=== PATIENT | female | born 1950 | race Caucasian/White ===

== ENCOUNTER 2016-06-01 12:31 | Inpatient (IN) | payer MEDICARE, OTHER ==
[~2016-06-01] VITALS: Ht 152.4 cm; Wt 49.4 kg
--- NOTE | 2016-06-01 12:40 | NUR ---
pt to ed room 02. MID STERNAL CHEST PAIN, NON RADIATING WHILE STANDING IN LINE AT PHARMACY. a/a/o. side raisl up. hob elevated. connected to monitor. seen and evaluated by ed provider.
[2016-06-01] MEDS ORDERED: ACETAMINOPHEN ES 500 MG TABLET ONE (12:52)
[2016-06-01 12:57] LABS: BASOPHILS # (AUTO) 0.2 /CMM (0.0-0.2); BASOPHILS % (AUTO) 1.7 % (0.0-2.0); EOSINOPHILS # (AUTO) 0.2 /CMM (0.0-0.7); EOSINOPHILS % (AUTO) 2.2 % (0.0-6.0); HEMATOCRIT 44 % (33-45); HEMOGLOBIN 14.6 g/dL (11.5-14.8); LYMPHOCYTES # (AUTO) 1.7 /CMM (0.8-4.8); MEAN CORPUSCULAR HEMOGLOBIN 28 PG (26.0-33.0); MEAN CORPUSCULAR HGB CONC 33 g/dl (31.0-36.0); MEAN CORPUSCULAR VOLUME 83 fL (82-100); MONOCYTES # (AUTO) 0.5 /CMM (0.1-1.30); MONOCYTES % (AUTO) 4.9 % (2.0-12.0); NEUTROPHILS # (AUTO) 7.1 /CMM (1.8-8.9); NEUTROPHILS % (AUTO) 73.2 % (43.0-81.0); PLATELET COUNT (AUTO) 225 /CMM (150-450); RDW COEFFICIENT OF VARIATION 12.6 (11.5-15.0); RED BLOOD CELL COUNT(AUTO) 5.33 MIL/uL (4.0-5.2); WHITE BLOOD COUNT (AUTO) 9.7 K/uL (4.3-11.0)
[2016-06-01] MEDS ORDERED: ACETAMINOPHEN ES 500 MG TABLET PO ONE (13:00)
[2016-06-01 13:06] LABS: CALCIUM, SERUM 9.4 mg/dL (8.5-10.1); CARBON DIOXIDE 25 mmol/L (21-32); CHLORIDE 107 mmol/L (98-107); CREATININE 0.7 mg/dL (0.6-1.3); GFR 83 mL/min (>60); GLUCOSE 189 mg/dL (74-106); POTASSIUM 3.7 mmol/L (3.5-5.1); SODIUM SERUM 143 mmol/L (136-145); UREA NITROGEN, BLOOD 11 mg/dL (7-18)
[2016-06-01 13:10] LABS: INR 0.95 (0.87-1.13); PROTHROMBIN TIME 9.9 SECS (9.5-12.7)
[2016-06-01 13:15] LABS: TROPONIN I < 0.017 ng/mL (0.00-0.056)
[2016-06-01] MEDS ORDERED: SITA25TA PO (13:18)
[2016-06-01] MEDS ORDERED: LINA5TAB PO (13:18)
[2016-06-01] MEDS ORDERED: IBUP-1481 PO (13:18)
--- NOTE | 2016-06-01 13:30 | NUR ---
PAGED SUPERVISOR EVAPORATOR PANEL.
--- NOTE | 2016-06-01 13:42 | NUR ---
report given to chris hudson 327/2.
--- NOTE | 2016-06-01 13:48 | NUR ---
PAGED WIRELESS INTERNET INSTALLER MILDRED ROWE
--- NOTE | 2016-06-01 15:00 | NUR ---
ADMITTED FROM ER. PT. AWAKE, ALERT AND ORIENTED X4. DENIED PAIN AND SOB. SR ON THE TELE MONITOR. SKIN IS INTACT. LT HAND SL #20G. FAMILY AT THE BEDSIDE. GIVEN UNIT ORIENTATION TO THE PT AND FAMILY. SIDE RAILS UP. CALL LIGHT WITHIN REACH. MONITOR CLOSELY. PAGED DR. MARAVILLA.
[2016-06-01] MEDS ORDERED: ACETAMINOPHEN 325 MG TABLET PO PRN (15:30)
[2016-06-01] MEDS ORDERED: ZOLPIDEM TARTRATE 5 MG TABLET PO PRN (15:30)
[2016-06-01] MEDS ORDERED: HYDROCODONE/APAP 5/325MG 1 EACH TABLET PO PRN (15:30)
[2016-06-01] MEDS ORDERED: Z GUARD REMEDY 2 OZ OINT TP PRN (15:30)
[2016-06-01] MEDS ORDERED: MAG HYDROX/AL HYDROX/SIMETH 30 ML UDC PO PRN (15:30)
[2016-06-01] MEDS ORDERED: ONDANSETRON HCL/PF 4 MG/2 ML VIAL IVP PRN (15:30)
[2016-06-01 16:00] VITALS: BP 135/73
[2016-06-01] MEDS ORDERED: NITROGLYCERIN 0.4 MG/TAB BOTTLE SL PRN (16:00)
--- NOTE | 2016-06-01 17:15 | NUR ---
ORTHOSTATIC BP LYING 152/72 HR 74 SITTING 158/84 HR 73 STANDING 143/78 HR76
--- NOTE | 2016-06-01 18:52 | NUR ---
CLOSING SHIFT PT. AWAKE, ALERT AND ORIENTED X4. DENIED CHEST PAIN. SR ON THE MONITOR. APPLIED DVT MACHINE. CALL LIGHT WITHIN REACH. SIDE RAILS UP. MONITO CLOSELY.
[2016-06-01 19:30] LABS: TROPONIN I < 0.017 ng/mL (0.00-0.056)
[2016-06-01 20:59] VITALS: BP 154/76
--- NOTE | 2016-06-01 21:20 | NUR ---
RN NOTES RECEIVED PT AWAKE, NO SOB AND TOLERATING ROOM AIR, NO SIGNS OF DISTRESS AND DISCOMFORT NOTED. PT ALERT AND ORIENTED X4, DENIES ANY PAIN AND DISCOMFORT. TELEMONITOR READS SINUS RHYTHM WITH HEART RATE AT 81. LUNGS CLEAR ON AUSCULTATION. IV ACCESS ON LEFT HAND PATENT AND INTACT. WITH DVT PUMP ON. PT AMBULATES WITH STEADY GAIT. KEPT BED IN THE LOWEST POSITION, LOCKED, SIDE RAILS UP X2, WITH CALL LIGHT WITH IN REACH. WILL CONTINUE TO MONITOR PT.
[2016-06-01 22:00] VITALS: BP 154/76
[2016-06-02] VITALS (8 sets, daily range): BP systolic 122–146; BP diastolic 66–82
--- NOTE | 2016-06-02 06:53 | NUR ---
RN NOTES PT ASLEEP, HOB ELEVATED, NO SOB, NO SIGNS OF DISTRESS AND DISCOMFORT , ON ROOM AIR AND TOLERATED WELL.VITAL SIGNS STABLE, AFEBRILE. NO EPISODE OF NAUSEA AND VOMITING. NO COMPLAIN OF PAIN WITH IN THE SHIFT. AMBULATES WITH STEADY GAIT. ALL NEEDS ATTENDED. WILL ENDORSE TO MORNING RN FOR CONTINUITY OF CARE.
[2016-06-02 06:58] LABS: BASOPHILS % (AUTO) 0.6 % (0.0-2.0); EOSINOPHILS # (AUTO) 0.2 /CMM (0.0-0.7); EOSINOPHILS % (AUTO) 3.2 % (0.0-6.0); HEMATOCRIT 44 % (33-45); HEMOGLOBIN 14.4 g/dL (11.5-14.8); LYMPHOCYTES # (AUTO) 1.9 /CMM (0.8-4.8); LYMPHOCYTES % (AUTO) 31.3 % (20.0-44.0); MEAN CORPUSCULAR HEMOGLOBIN 27 PG (26.0-33.0); MEAN CORPUSCULAR HGB CONC 33 g/dl (31.0-36.0); MEAN CORPUSCULAR VOLUME 83 fL (82-100); MONOCYTES # (AUTO) 0.5 /CMM (0.1-1.30); MONOCYTES % (AUTO) 8.1 % (2.0-12.0); NEUTROPHILS # (AUTO) 3.4 /CMM (1.8-8.9); NEUTROPHILS % (AUTO) 56.8 % (43.0-81.0); PLATELET COUNT (AUTO) 229 /CMM (150-450); RDW COEFFICIENT OF VARIATION 13.4 (11.5-15.0); RED BLOOD CELL COUNT(AUTO) 5.31 MIL/uL (4.0-5.2); WHITE BLOOD COUNT (AUTO) 6.1 K/uL (4.3-11.0)
--- NOTE | 2016-06-02 07:30 | NUR ---
AM RN NOTE Received patient awake, A/O X3 verbally responsive able to make needs known. On tele monitor. Denies any pain or discomfort at this time. Will continue to monitor.
[2016-06-02 07:46] LABS: CALCIUM, SERUM 9.2 mg/dL (8.5-10.1); CREATININE 0.9 mg/dL (0.6-1.3); MAGNESIUM 2.2 mg/dL (1.8-2.4); PHOSPHORUS 4.3 mg/dL (2.5-4.9); POTASSIUM 4.8 mmol/L (3.5-5.1)
[2016-06-02] MEDS: PANTOPRAZOLE 40 MG TABLET.DR PO SCH (08:24)
[2016-06-02] MEDS: ASPIRIN EC 81 MG TABLET.DR PO SCH (12:37)
[2016-06-02] MEDS: LISINOPRIL (5MG) 5 MG TABLET PO SCH (12:37)
--- NOTE | 2016-06-02 13:00 | NUR ---
WAI HECK NOTE LYING BP134/69 P65 SITTING BP124/78 P71 STANDING BP129/79 P78 Addendum: 06/02/16 at 1503 by ANJALI SANDRA RN Amended: Links added.
--- NOTE | 2016-06-02 18:22 | NUR ---
AM RN NOTE Patient awake, A/OX 4 denies any pain at this time. Family at bedside. Will endorse to next shift for BARBARA.
--- NOTE | 2016-06-02 19:20 | NUR ---
RN NOTES RECEIVED PT AWAKE, NO SOB, NO SIGNS OF DISTRESS AND DISCOMFORT NOTED AND TOLERATING ROOM AIR. PT ALERT AND ORIENTED X4, DENIES ANY PAIN AND DISCOMFORT. IV ACCESS ON LEFT HAND PATENT AND INTACT. PT AMBULATES WITH STEADY GAIT. KEPT BED IN THE LOWEST POSITION, LOCKED, SIDE RAILS UP X2, WITH CALL LIGHT WITH IN REACH. WILL CONTINUE TO MONITOR PT.
[2016-06-02] MEDS ORDERED: SIMVASTATIN 10 MG TABLET PO SCH (22:00)
--- NOTE | 2016-06-03 07:19 | NUR ---
RN NOTES PT ASLEEP, HOB ELEVATED, NO SOB, NO SIGNS OF DISTRESS AND DISCOMFORT , ON ROOM AIR AND TOLERATED WELL. VITAL SIGNS STABLE, AFEBRILE. NO EPISODE OF NAUSEA AND VOMITING. NO COMPLAIN OF PAIN WITH IN THE SHIFT. AMBULATES WITH STEADY GAIT AND ASSISTED TO THE BATHROOM. ALL NEEDS ATTENDED. ENDORSED TO MORNING RN FOR CONTINUITY OF CARE.
--- NOTE | 2016-06-03 07:40 | NUR ---
RN OPEN NOTES RECEIVED REPORT FROM FUR VAULT ATTENDANT NURSE. PATIENT IS IN BED, AWAKE AND ORIENTED TO NAME, PLACE AND TIME. DENIED PAIN. NO SIGNS AND SYMPTOMS OF DISTRESS. BED IN LOW POSITION, LOCKED AND 2 SIDE RAILS ARE UP. WILL CONTINUE TO MONITOR AND ASSESS PATIENT.
[2016-06-03 08:00] VITALS: BP 128/70
[2016-06-03] MEDS ORDERED: ASPIRIN 81 MG TAB.CHEW PO SCH (09:00)
[2016-06-03] MEDS: PANTOPRAZOLE 40 MG TABLET.DR PO SCH (09:18)
[2016-06-03] MEDS: ASPIRIN EC 81 MG TABLET.DR PO SCH (09:18)
[2016-06-03] MEDS: LISINOPRIL (5MG) 5 MG TABLET PO SCH (09:18)
[2016-06-03] MEDS ORDERED: LISI5TAB45 PO (11:08)
[2016-06-03] MEDS ORDERED: SIMV10TA6 PO (11:08)
[2016-06-03] MEDS ORDERED: ASPI-605 PO (11:08)
[2016-06-03] MEDS ORDERED: METF500T4 PO (11:08)
[2016-06-03 12:00] VITALS: BP 124/79
[2016-06-03] MEDS ORDERED: IBUPROFEN 400 MG TABLET PO SCH (13:00)
--- NOTE | 2016-06-03 13:54 | NUR ---
ALARM OPERATOR NOTES PATIENT DISCHARGE INSTRUCTION RECEIVED AND EXPLAINED TO PATIENT AND PATIENT'S , BOTH VERBALIZED UNDERSTANDING. PATIENT IS STABLE AT TIME OF DISCHARGE. NO SIGNS OR SYMPTOMS OF DISTRESS. STABLE VITAL SIGNS. PATIENT IV SITE REMOVED. ID BAND REMOVED. ALL PERSONAL BELONGING WITH PATIENT AT TIME OF DISCHARGE. 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 PATIENT TRANSPORTED HOME IN A PRIVATE CAR ACCOMPANIED BY HER DAUGHTER.
[2016-06-04] MEDS ORDERED: LINAGLIPTIN 5 MG TABLET PO SCH (09:00)
== END 2016-06-03 14:00 | disposition home or self-care (01) | DRG 206 ==
LOC: ER 12:32 → EDBD 12:32 → TELE 13:34 → MED 06-02 12:34
PROVIDERS: ADMIT Nurse Practitioner Acute Care; ATTEND Nurse Practitioner Acute Care
DX: M94.0 Chondrocostal junction syndrome [Tietze] (principal); D68.59 Other primary thrombophilia; I10 Essential (primary) hypertension; M06.9 Rheumatoid arthritis, unspecified; E11.65 Type 2 diabetes mellitus with hyperglycemia; E78.1 Pure hyperglyceridemia
CPT/HCPCS: 36415; 70450-TC; 71010-TC; 72125-TC; 73564-TC; 80048-TC; 80061-TC; 82962-TC; 83735-TC; 83880; 84100-TC; 84443-TC; 84484-TC; 85025-TC; 85730-TC; 87081-TC; 93307-TC; 93880-TC; A4606; Z7610

== ENCOUNTER 2016-06-05 09:05 | Outpatient (CLI) | payer MEDICARE, OTHER ==
[~2016-06-05 09:05] MED LIST: ASPI-605 PO; IBUP-1481 PO; LINA5TAB PO; LISI5TAB45 PO; METF500T4 PO; SIMV10TA6 PO
[2016-06-05] MEDS ORDERED: REGADENOSON 0.4 MG/5 ML DISP.SYRIN IVP ONE (11:00)
== END 2016-06-05 23:59 ==
LOC: NM 09:05
PROVIDERS: ATTEND Internal Medicine Cardiovascular Disease
DX: R07.9 Chest pain, unspecified (principal)
CPT/HCPCS: 78452; A9502; J2785

== ENCOUNTER 2018-11-25 12:40 | Emergency (ER) | payer MEDICARE, OTHER ==
[~2018-11-25] VITALS: Ht 162.6 cm; Wt 55.3 kg
[~2018-11-25 12:40] MED LIST changes: -IBUP-1481 PO; +IBUP-1953 PO; +LISI-608 PO; -LISI5TAB45 PO; +METF-440 PO; -METF500T4 PO
--- NOTE | 2018-11-25 13:02 | NUR ---
PT BIB SON C/O BIB Family "abdominal pain/weak/body aches/nausea/diarrhea x3d" PT IS AAOX3, NOT IN RESPIRATORY DISTRESS, HOOKED TO MONITOR, KEPT RESTED AND COMFORTABLE, WILL CONTINUE TO MONITOR.
--- NOTE | 2018-11-25 13:18 | NUR ---
AT BEDSIDE FOR EVAL.
--- NOTE | 2018-11-25 13:26 | NUR ---
URINE SPECIMEN COLLECTED AND SENT TO LAB.
[2018-11-25] MEDS ORDERED: ACETAMINOPHEN ES 500 MG TABLET PO ONE (13:30)
[2018-11-25] MEDS ORDERED: IBUPROFEN 600 MG TABLET PO ONE ×2 (13:30→13:37)
--- NOTE | 2018-11-25 13:30 | NUR ---
IV LINE ESTABLISHED, BLOOD DRAWN AND SENT TO LAB.
[2018-11-25] MEDS ORDERED: ACETAMINOPHEN ES 500 MG TABLET ONE (13:36)
[2018-11-25 13:39] LABS: BASOPHILS # (AUTO) 0.1 /CMM (0.0-0.2); BASOPHILS % (AUTO) 1.1 % (0.0-2.0); EOSINOPHILS % (AUTO) 1.9 % (0.0-6.0); HEMATOCRIT 45 % (33-45); HEMOGLOBIN 15.3 g/dL (11.5-14.8); LYMPHOCYTES # (AUTO) 1.6 /CMM (0.8-4.8); LYMPHOCYTES % (AUTO) 25.4 % (20.0-44.0); MEAN CORPUSCULAR HGB CONC 34 g/dl (31.0-36.0); MEAN CORPUSCULAR VOLUME 82 fL (82-100); MONOCYTES # (AUTO) 0.5 /CMM (0.1-1.30); MONOCYTES % (AUTO) 8.8 % (2.0-12.0); NEUTROPHILS # (AUTO) 3.9 /CMM (1.8-8.9); NEUTROPHILS % (AUTO) 62.8 % (43.0-81.0); PLATELET COUNT (AUTO) 219 /CMM (150-450); RED BLOOD CELL COUNT(AUTO) 5.41 MIL/uL (4.0-5.2); WHITE BLOOD COUNT (AUTO) 6.3 K/uL (4.3-11.0)
[2018-11-25 13:40] LABS: APPEARANCE,URINE Clear (CLEAR); BILIRUBIN,URINE Negative (NEGATIVE); BLOOD, URINE Negative Ery/uL (NEGATIVE); COLOR,URINE Yellow (YELLOW); KETONES,URINE Negative (NEGATIVE); LEUKOCYTE ESTERASE ,URINE Negative (NEGATIVE); NITRITE, URINE Negative (NEGATIVE); PROTEIN,URINE Negative (NEGATIVE); UGLUCOSE 500 MG/DL mg/dL (NEGATIVE); UROBILINOGEN,URINE 0.2 EU/dL (0.2)
[2018-11-25 13:47] LABS: CALCIUM, SERUM 9.5 mg/dL (8.5-10.1); CARBON DIOXIDE 27 mmol/L (21-32); CHLORIDE 103 mmol/L (98-107); CREATININE 0.7 mg/dL (0.6-1.3); GLUCOSE 242 mg/dL (74-106); POTASSIUM 4.1 mmol/L (3.5-5.1); SODIUM SERUM 138 mmol/L (136-145); UREA NITROGEN, BLOOD 9 mg/dL (7-18)
[2018-11-25 13:53] LABS: ALANINE AMINOTRANSFERASE 22 U/L (12-78); ALKALINE PHOSPHATASE 101 U/L (46-116); ASPARTATE AMINOTRANSFERASE 22 U/L (15-37); BILIRUBIN,DIRECT 0.2 mg/dL (0.0-0.2); BILIRUBIN,TOTAL 0.7 mg/dL (0.2-1.0); LIPASE 165 U/L (73-393); TOTAL PROTEIN, SERUM 7.4 g/dL (6.4-8.2)
--- NOTE | 2018-11-25 14:01 | NUR ---
PHOTOGRAPHIC PROCESSOR AT BEDSIDE FOR XRAY.
[2018-11-25] MEDS ORDERED: CT SWABBABLE VALVE TRANS SET 1 EA INFUS.SET MC ONE (14:24)
[2018-11-25] MEDS ORDERED: IOHEXOL-300 100 ML VIAL IV ONE (14:24)
[2018-11-25] MEDS ORDERED: IV NS 0.9% 250 ML IV ONE (14:24)
--- NOTE | 2018-11-25 14:38 | NUR ---
PT IS BACK FROM TH CT SCAN.
[2018-11-25 15:28] VITALS: BP 121/81
--- NOTE | 2018-11-25 15:28 | NUR ---
IV removed. Catheter intact and site benign. Pressure and 4x4 applied to site. No bleeding noted. Patient discharged to home in stable condition. Written and verbal after care instructions given. Patient verbalizes understanding of instruction.
== END 2018-11-25 15:30 | disposition home or self-care (01) ==
LOC: ER 12:49
DX: R10.9 Unspecified abdominal pain (principal); I10 Essential (primary) hypertension; E11.9 Type 2 diabetes mellitus without complications; Z79.82 Long term (current) use of aspirin; Z79.899 Other long term (current) drug therapy; Z90.49 Acquired absence of other specified parts of digestive tract
CPT/HCPCS: 36415; 71045; 74177; 80048; 80076; 81001; 83690; 84484; 85025; 85378; 87086; 93005 ×2; 99284; J7050; Q9967; 81000-TC

== ENCOUNTER 2019-02-17 13:26 | Emergency (ER) | payer MEDICARE, OTHER ==
[~2019-02-17] VITALS: Ht 154.9 cm; Wt 59.0 kg
[~2019-02-17 13:26] MED LIST changes: -SIMV10TA6 PO; +SIMV10TA98 PO
--- NOTE | 2019-02-17 13:40 | NUR ---
PAIN IN LEFT FOOT AND BACK OF HEAD, SLIPPED/FELL IN THE BATHROOM 2 DAYS AGO. PATIENT A/OX4, BREATHING EVEN AND UNLABORED, NO SOB NOTED, NEEDS ATTENDED, KEPT COMFORTABLE.
--- NOTE | 2019-02-17 15:40 | NUR ---
dr. gutiérrez spoke with family.
--- NOTE | 2019-02-17 16:12 | NUR ---
waiting for post-op shoe.
[2019-02-17 16:23] VITALS: BP 147/75
--- NOTE | 2019-02-17 16:23 | NUR ---
Patient discharged to home in stable condition. Written and verbal after care instructions given. Patient verbalizes understanding of instruction.
== END 2019-02-17 16:24 | disposition home or self-care (01) ==
LOC: ER 13:26
DX: S92.592A Other fracture of left lesser toe(s), initial encounter for closed fracture (principal); S00.03XA Contusion of scalp, initial encounter; I10 Essential (primary) hypertension; E11.9 Type 2 diabetes mellitus without complications; Z79.82 Long term (current) use of aspirin; Z79.899 Other long term (current) drug therapy; W01.0XXA Fall on same level from slipping, tripping and stumbling without subsequent striking against object, initial encounter; Y93.89 Activity, other specified; Y92.002 Bathroom of unspecified non-institutional (private) residence as the place of occurrence of the external cause; Y99.8 Other external cause status
CPT/HCPCS: 70450-TC; 73630-TC

== ENCOUNTER 2023-12-25 11:35 | Inpatient (IN) | payer MEDICARE, OTHER ==
[~2023-12-25] VITALS: Ht 162.6 cm; Wt 59.9 kg
[~2023-12-25 11:35] MED LIST changes: -LISI-608 PO; +LISI5TAB24 PO
[2023-12-25 12:07] LABS: BASOPHILS # (AUTO) 0.1 K/uL (0.0-0.2); BASOPHILS % (AUTO) 1.1 % (0.0-2.0); EOSINOPHILS # (AUTO) 0.1 K/uL (0.0-0.7); EOSINOPHILS % (AUTO) 1.5 % (0.0-6.0); HEMATOCRIT 44 % (33-45); HEMOGLOBIN 14.3 g/dL (11.5-14.8); LYMPHOCYTES # (AUTO) 1.7 K/uL (0.8-4.8); MEAN CORPUSCULAR HEMOGLOBIN 25 PG (26.0-33.0); MEAN CORPUSCULAR HGB CONC 33 g/dl (31.0-36.0); MEAN CORPUSCULAR VOLUME 76 fL (82-100); MONOCYTES # (AUTO) 0.7 K/uL (0.1-1.30); MONOCYTES % (AUTO) 7.3 % (2.0-12.0); NEUTROPHILS # (AUTO) 6.9 K/uL (1.8-8.9); NEUTROPHILS % (AUTO) 72.1 % (43.0-81.0); PLATELET COUNT (AUTO) 233 K/uL (150-450); RED CELL DISTRIBUTION WIDTH 15.3 % (11.5-15.0); WHITE BLOOD COUNT (AUTO) 9.6 K/uL (4.3-11.0)
[2023-12-25 12:15] LABS: CALCIUM, SERUM 9.1 mg/dL (8.5-10.1); CARBON DIOXIDE 27 mmol/L (21-32); CHLORIDE 106 mmol/L (98-107); GLUCOSE 107 mg/dL (74-106); SODIUM SERUM 141 mmol/L (136-145); UREA NITROGEN, BLOOD 10 mg/dL (7-18)
[2023-12-25] MEDS ORDERED: ACETAMINOPHEN 325 MG TABLET PO PRN (15:00)
[2023-12-25] MEDS ORDERED: MAGNESIUM HYDROXIDE 30 ML UDC PO PRN (15:00)
[2023-12-25] MEDS ORDERED: ONDANSETRON HCL/PF 4 MG/2 ML VIAL IVP PRN (15:00)
[2023-12-25] MEDS ORDERED: DEXTROSE 50%-WATER 50 ML DISP.SYRIN IV PRN (15:00)
[2023-12-25] MEDS ORDERED: MAG HYDROX/AL HYDROX/SIMETH 30 ML UDC PO PRN (15:00)
[2023-12-25] MEDS ORDERED: Z GUARD REMEDY 4 OZ OINT TP PRN (15:00)
[2023-12-25] MEDS ORDERED: FAMO40TA70 PO (15:29)
[2023-12-25] MEDS ORDERED: INSU100I24 SQ (15:29)
[2023-12-25] MEDS ORDERED: SERT50TA12 PO (15:29)
[2023-12-25] MEDS ORDERED: NAPR-1009 PO (15:29)
[2023-12-25] MEDS ORDERED: EMPA1TAB PO (15:29)
[2023-12-25] MEDS ORDERED: AMYL1CAP58 PO (15:29)
[2023-12-25] MEDS ORDERED: AMLO-212 PO (15:29)
[2023-12-25] MEDS ORDERED: LOSA50TA39 PO (15:29)
[2023-12-25 16:00] VITALS: BP 155/81; TEMP 97.5; O2SAT 99
[2023-12-25] MEDS: ENOXAPARIN SODIUM 40 MG/0.4 ML DISP.SYRIN SQ SCH (17:19)
[2023-12-25] MEDS: BLOOD SUGAR DIAGNOSTIC 1 EACH STRIP VI SCH (17:20)
[2023-12-25] MEDS: INSULIN REGULAR, HUMAN 100 UNIT/ML 3 ML VIAL SQ PRN (17:21)
[2023-12-25 20:10] VITALS: BP 122/56; TEMP 97.9; O2SAT 98
[2023-12-25] MEDS: SIMVASTATIN 10 MG TABLET PO SCH (21:25)
[2023-12-25] MEDS: *INSULIN REGULAR(HUMULIN R)HUM 100 UNIT/ML VIAL SQ PRN (21:30)
[2023-12-26 00:34] VITALS: BP 129/64; TEMP 97.9; O2SAT 98
[2023-12-26 05:44] VITALS: BP 145/75; TEMP 98.1; O2SAT 98
[2023-12-26 06:29] LABS: BASOPHILS # (AUTO) 0.1 K/uL (0.0-0.2); BASOPHILS % (AUTO) 0.9 % (0.0-2.0); EOSINOPHILS # (AUTO) 0.2 K/uL (0.0-0.7); EOSINOPHILS % (AUTO) 3.7 % (0.0-6.0); HEMATOCRIT 42 % (33-45); HEMOGLOBIN 13.8 g/dL (11.5-14.8); LYMPHOCYTES # (AUTO) 1.4 K/uL (0.8-4.8); LYMPHOCYTES % (AUTO) 24.4 % (20.0-44.0); MEAN CORPUSCULAR HEMOGLOBIN 25 PG (26.0-33.0); MEAN CORPUSCULAR HGB CONC 33 g/dl (31.0-36.0); MEAN CORPUSCULAR VOLUME 76 fL (82-100); MONOCYTES # (AUTO) 0.6 K/uL (0.1-1.30); MONOCYTES % (AUTO) 9.5 % (2.0-12.0); NEUTROPHILS # (AUTO) 3.6 K/uL (1.8-8.9); NEUTROPHILS % (AUTO) 61.5 % (43.0-81.0); PLATELET COUNT (AUTO) 203 K/uL (150-450); RED BLOOD CELL COUNT(AUTO) 5.53 MIL/uL (4.0-5.2); RED CELL DISTRIBUTION WIDTH 15.2 % (11.5-15.0); WHITE BLOOD COUNT (AUTO) 5.9 K/uL (4.3-11.0)
[2023-12-26 07:00] VITALS: BP 136/62; TEMP 97.7; O2SAT 99
[2023-12-26 07:20] LABS: CALCIUM, SERUM 9.6 mg/dL (8.5-10.1); CARBON DIOXIDE 30 mmol/L (21-32); CHLORIDE 109 mmol/L (98-107); GLUCOSE 144 mg/dL (74-106); MAGNESIUM 2.3 mg/dL (1.8-2.4); POTASSIUM 4.3 mmol/L (3.5-5.1); SODIUM SERUM 146 mmol/L (136-145); UREA NITROGEN, BLOOD 13 mg/dL (7-18)
[2023-12-26] MEDS: ASPIRIN EC 81 MG TABLET.DR PO SCH (09:00)
[2023-12-26] MEDS: LISINOPRIL (5MG) 5 MG TABLET PO SCH (09:04)
[2023-12-26] MEDS: SERTRALINE HCL 50 MG TABLET PO SCH (09:23)
[2023-12-26] MEDS: LOSARTAN POTASSIUM 50 MG TABLET PO SCH (09:23)
[2023-12-26] MEDS: ASPIRIN 81 MG TAB.CHEW PO SCH (09:24)
[2023-12-26] MEDS: AMLODIPINE BESYLATE 5 MG TABLET PO SCH (09:24)
[2023-12-26] MEDS: ATORVASTATIN 10 MG TABLET PO SCH (09:24)
[2023-12-26] MEDS ORDERED: IOHEXOL-300 100 ML VIAL IV ONE (10:50)
[2023-12-26] MEDS ORDERED: IV NS 0.9% 250 ML IV ONE (10:53)
[2023-12-26] MEDS ORDERED: CT SWABBABLE VALVE TRANS SET 1 EA INFUS.SET MC ONE (10:53)
[2023-12-26] MEDS: METOPROLOL TARTRATE INJ 5 MG/5 ML AMPUL IVP PRN (11:30)
[2023-12-26] MEDS: NITROGLYCERIN 0.4 MG/TAB BOTTLE SL ONE (11:38)
[2023-12-26] MEDS: EMPAGLIFLOZIN 25 MG TABLET PO SCH (12:46)
[2023-12-26] MEDS: LIPASE/PROTEASE/AMYLASE 1 EACH CAPSULE.DR PO SCH (12:47)
[2023-12-26] MEDS: LINAGLIPTIN 5 MG TABLET PO SCH (12:47)
[2023-12-26 16:00] VITALS: BP 122/61; TEMP 97.9; O2SAT 99
[2023-12-27 00:50] VITALS: BP 117/64; TEMP 98.2; O2SAT 94
[2023-12-27 04:43] VITALS: BP 117/64; TEMP 98.2; O2SAT 94
[2023-12-27] MEDS: FAMOTIDINE (20 MG) 20 MG TABLET PO SCH (09:09)
[2023-12-27 09:10] VITALS: BP 109/67
[2023-12-27 11:03] LABS: CHOLESTEROL 153 mg/dL (<200); HDL CHOLESTEROL 35 mg/dL (40-60); LDL 90 mg/dL (0-99); TRIGLYCERIDES 179 mg/dL (30-150)
== END 2023-12-27 16:30 | disposition home or self-care (01) | DRG 206 ==
LOC: ER 11:37 → TELE 15:25 → MED 12-27 10:30
PROVIDERS: ADMIT Internal Medicine; ATTEND Internal Medicine
DX: M94.0 Chondrocostal junction syndrome [Tietze] (principal); K86.1 Other chronic pancreatitis; E11.9 Type 2 diabetes mellitus without complications; E78.5 Hyperlipidemia, unspecified; I10 Essential (primary) hypertension; M06.9 Rheumatoid arthritis, unspecified; Z79.82 Long term (current) use of aspirin; Z79.84 Long term (current) use of oral hypoglycemic drugs; I25.2 Old myocardial infarction
CPT/HCPCS: 36415; 71045-TC; 75574; 80048-TC; 80061-TC; 82962-TC; 83735-TC; 84100-TC; 84484-TC; 85025-TC; 93307-TC; G0378; J1650; J1815; J3490; J7050; Q9967